=== PATIENT | male | born 1970 | race Caucasian/White ===

== ENCOUNTER 2024-08-07 20:05 | Emergency (ER) | payer SELFPAY ==
[2024-08-07 20:08] VITALS: BP 151/100; PULSE 86; RESP 18; TEMP 36.4; O2SAT 100; BMI 19.8
[2024-08-07 21:06] VITALS: PULSE 69; RESP 17; O2SAT 98
[2024-08-07 21:48] LABS: Amphetamine Urine VISTA POSITIVE (<1000 ng/mL); Barbiturate Urine VISTA NEGATIVE (< 200 ng/mL); Benzodiazepine Urine VISTA NEGATIVE (< 200 ng/mL); Cocaine Urine VISTA NEGATIVE (< 300 ng/mL); Ecstacy Urine VISTA NEGATIVE (< 500 ng/mL); Methadone Urine VISTA NEGATIVE (< 300 ng/mL); PCP Urine VISTA NEGATIVE (< 25 ng/mL); THC Urine VISTA NEGATIVE (< 50 ng/mL); Vista UDS pH Range 7
--- NOTE | 2024-08-07 22:07 | ED.RN ---
CHART FAXED TO [facility]
[2024-08-07 22:09] LABS: Absolute Neutrophil Count 4.3 X10^3/uL (2.0-7.7); Basophil# 0.06 X10^3/uL; Basophil% 0.9 % (0-1); Eosinophil# 0.21 X10^3/uL; Eosinophils% 3.2 % (0-5); Hematocrit 43.8 % (40-54); Hemoglobin 15.3 g/dL (13.0-16.5); Lymphocyte % 21.6 % (19-41); Mean Corp Hgb Conc 34.9 g/dL (32-36); Mean Corpuscular Hgb 34.9 pg (27.0-32.0); Mean Corpuscular Volume 99.8 fL (80-94); Mean Platelet Vol. 10.5 fl (6.2-12.0); Monocyte# 0.49 X10^3/uL; Monocyte% 7.6 % (0-10); NRBC Flagged by Analyzer 0 % (0-5); Neutrophil # 4.27 X10^3/uL (2.7-7.7); Neutrophil % 66.1 % (47-70); Platelet Count 315 K/mm3 (150-450); RBC Distribution Width CV 13.2 % (11.6-14.6); RBC Distribution Width SD 48.5 fl (35.1-43.9); Red Blood Count 4.39 M/mm3 (4.6-6.2); White Blood Count 6.5 K/mm3 (4.4-11.0)
[2024-08-07 22:19] LABS: Anion Gap 5 (5-15); BUN 11 mg/dL (7-18); BUN/Creat Ratio 13.9 RATIO (10-20); Calcium,Total 9.1 mg/dL (8.5-10.1); Chloride 105 mmol/L (98-107); Creatinine, Serum 0.79 mg/dL (0.70-1.30); EST Glomerular Filtration Rate 108 mL/min (>60); Est Glom Filt Rate - Afr Amer 131 mL/min (>60); Estimated Creatinine Clearance 87.76 ml/min; Glucose 92 mg/dL (74-106); Potassium 3.6 mmol/L (3.5-5.1); Sodium Level 136 mmol/L (136-145)
--- NOTE | 2024-08-07 23:16 | EDS_ITS ---
HPI HPI - Psych History of Present Illness Chief Complaint: Mental Health Detail of Chief Complaint: Patient was brought to the ER by law enforcement and pink slipped because o Informant: patient, family and police/wrecker operator Onset/Context/Timing Onset: Weeks Context: Sudden Onset Timing: Intermittent Current Severity: Moderate Maximum Severity: Severe Worsened by: Situational factors (Per patient. This was not confirmed by mother or law enforcement) Relieved by: Nothing Associated Symptoms Associated Symptoms - Psych: Positive for Change in Eating, Change in sleeping, Easily distracted, Angry, Threatening, Paranoia, Visual Hallucinations and Auditory Hallucinations Specific plan (suicidal thought): No suicidal thoughts. Narrative Narrative: Patient is a 53-year-old male.There are no prior records available through [facility]. History is limited to what the police or patrol park officer told me. Patient's spouse apparently 2 years ago. Sister who is close to 2 weeks ago. Spoke with a friend who confirmed that he was over his house and discussing his sisters and that he was sad. I was later informed by law enforcement who I spoke to independently that the friend has psychiatric issues. The officer that brought him to the emergency room informing that his mother moved out a week ago because of not feeling Sydnee and his behavior. He has been yelling at the neighbor's son. He is having visual and auditory hallucinations. He is not well-groomed. He has been agitated. He has had change in sleep and eating. It is unknown whether he has a underlying psychiatric disorder. After speaking with the licensed loan officer from the counseling center I was made aware that patient does have a psychiatric disorder. He apparently is not compliant with his medication. Prior similar symptoms: Yes Recent Illness/Hospitalization: Yes (Per licensed loan officer from the crisis center.) PFSH PFSH unable to obtain Home Medications ?Medication ?Instructions ?Recorded ?Last Taken ?Type NK 08/07/24 Unknown History Allergy/AdvReac Type Severity Reaction Status Date / Time Penicillins Allergy PT UNSURE Verified 08/07/24 20:08 OF REACTION Surgical History (Updated 08/07/24 @ 20:43 by Angeline Morse) Hx of inguinal hernia surgery Social History (Updated 08/07/24 @ 23:[address] Romero Amaro MD) household members: family Smoking Status: Heavy Smoker (>10/day) ROS ROS ED Review of Systems ROS Unobtainable: due to mental condition, due to mental status and other Details: Patient denies everything. EXAM Physical Exam Const Vital Signs: 08/07/24 20:08 08/07/24 21:06 Temperature 97.5 F L Temperature Source Temporal Pulse Rate 86 69 Respiratory Rate 18 17 Blood Pressure 151/100 H Blood Pressure Mean 117 Pulse Ox 100 98 Oxygen Delivery Method Room Air Room Air Positive well nourished and well developed Constitutional Narrative: Patient was in hospital gown when I saw him. Blood pressure is elevated. General Appearance ED: well developed and irritable; Negative for pallor HEENT Reports TM's clear and moist mucous membranes normocephalic and atraumatic Tympanic Membrane ED: Yes TM's clear Eyes PERRL and EOMs intact bilaterally General Eye ED: Negative for pale conjunctiva or scleral icterus Neck no lymphadenopathy, supple and no JVD Resp normal respiratory effort and clear to auscultation bilaterally Cardio S1 normal heart sound, S2 normal heart sound and no murmurs Rate: regular rate Rhythm: regular rhythm GI non-tender, non-distended and no masses Auscultation: normoactive bowel sounds Back/Spine no CVA tenderness Extremity normal to inspection General Extremety ED: Negative for edema or tenderness General Extremity: Negative for edema Neuro oriented x3, CN's II-XII intact bilaterally, no sensory deficits noted and deep tendon reflexes 2+ bilaterally Alfredo Coma Scale: document GCS findings Spontaneous Obeys Commands Oriented 15 Sensorium / Orientation: alert Motor Exam: strength 5/5 throughout Psych Appearance: other Patient in hospital gown. Attitude: paranoid Activity / Motor Behavior: psychomotor agitation Speech: rapid Mood & Affect: irritable and labile affect Thought Process: confabulating Thought Content: No suicidality, No homicidality, delusion(s) and hallucination(s) Positive for auditory and visual Attention / Concentration: other Difficult to assess since patient is not forthcoming. Insight: poor Judgement: poor Skin General Skin Exam: Negative for jaundice or pallor Lesions: no lesions Rashes: no rashes MDM MDM MDM Narrative Medical decision making narrative: Initially tox and alcohol level were obtained. After speaking with law enforcement for no workup was undertaken to rule out metabolic infectious causes since patient will need hospitalization. Patient has been pink slipped by me. Lab Data Lab results narrative: CBC is unremarkable. Electrolyte panel is normal. Urine tox is positive for amphetamines. Alcohol level is 21. Labs: Laboratory Results - last 24 hr 08/07/24 08/07/24 21:19 21:23 WBC 6.5 RBC 4.39 L Hgb 15.3 Hct 43.8 MCV 99.8 H MCH 34.9 H MCHC 34.9 RDW Std Deviation 48.5 H RDW Coeff of Ayush 13.2 Plt Count 315 MPV 10.5 Immature Gran % (Auto) 0.600 Neut % (Auto) 66.1 Lymph % (Auto) 21.6 [place] % (Auto) 7.6 Eos % (Auto) 3.2 Baso % (Auto) 0.9 Absolute Neuts (auto) 4.3 Absolute Lymphs (auto) 1.40 Nucleated RBC % 0 Sodium 136 Potassium 3.6 Chloride 105 Carbon Dioxide 26.0 Anion Gap 5 BUN 11 Creatinine 0.79 Estim Creat Clear Calc 87.76 Est GFR (MDRD) Af Amer 131 Est GFR (MDRD) Non-Af 108 BUN/Creatinine Ratio 13.9 Glucose 92 Calcium 9.1 Urine Opiates Screen NEGATIVE Urine Methadone Screen NEGATIVE Ur Barbiturates Screen NEGATIVE Ur Phencyclidine Scrn NEGATIVE Ur Amphetamines Screen POSITIVE H MDMA (Ecstasy) Screen NEGATIVE U Benzodiazepines Scrn NEGATIVE Urine Cocaine Screen NEGATIVE U Cannabinoids Screen NEGATIVE Ur Drug Screen Comment Ethyl Alcohol 21.0 Management Discussion w/another healthcare provider: belt worker/Case management (fiber glass worker from crisis center after speaking with Zenaida Santiago criminal justice social worker in the ER) and Behavioral health (fiber glass worker from crisis center) Treatment and Re-Evaluation Narrative: The night physician was made aware patient and told patient has been pink slipped and awaiting placement to psychiatric facility. Discharge Plan Triage Chief Complaint: Mental Health ED Provider: Romero Amaro Dx/Rx/DC Orders Clinical Impression: Psychosis, Depression, Auditory hallucinations, Visual hallucinations, Delusional ideas, Elevated blood pressure reading Prescriptions: No Action NK Primary Care Provider: Care Physician,No Primary Referrals: Care Physician,No Primary [Primary Care Provider] - Print Language: Setswana Disposition Disposition: Psychiatric Hospital or Unit
--- NOTE | 2024-08-08 03:51 | ED.RN ---
referred to [facility]
[2024-08-08 06:01] VITALS: BP 116/78; PULSE 69; RESP 17; O2SAT 97
--- NOTE | 2024-08-08 13:38 | CM.ED ---
Social Work SW spoke with Vale from Crisis, Vale stated that referral at [facility] has gone up to an administrative review. Will update SW or nursing staff when she receives an update. Plan: Inpatient psychiatric placement pending acceptance. Zenaida Ocampo, TOY MECHANIC, HIGH SCHOOL ASSISTANT PRINCIPAL
[2024-08-08 14:00] VITALS: BP 122/76; PULSE 74; RESP 18; O2SAT 99
--- NOTE | 2024-08-08 17:49 | CM.ED ---
Social Work SW called Deyvi at Crisis to get update on placement for patient. Deyvi stated the last update they received from [facility] was that patient was still under administrative review. Plan: Inpatient psychiatric hospitalization pending acceptance. Zenaida Ocampo, APPLIED EXERCISE PHYSIOLOGIST, BAGGAGE AGENT
--- NOTE | 2024-08-08 20:32 | ED.RN ---
TEZ FROM THE COUNSELING CENTER CALLED, HE STATED HE REACHED OUT TO [facility] TO SEE IF THERE WAS ANY UPDATE ON ACCEPTANCE. THEY STATED THAT HE IS NOT APPROPRIATE TO ACCEPT WITH HIS ACUTE AMPHETAMINE INTOXICATION, BUT THEY COULD REVIEW AFTER WE SEND AN UPDATED TOX SCREEN TO THEM.
[2024-08-08 22:00] VITALS: BP 131/88; PULSE 80; RESP 16; O2SAT 95
--- NOTE | 2024-08-08 22:08 | ED.RN ---
This nurse talked to Dorothy on the phone. Stating case managemnt for crisis and [facility] will be talking in the morning to discuss acute amphetamine in tox screen. This nurse talked to Dr. Mera and pt is medically cleared and could test positive for drugs up to several days from now. Crisis to come back in and do their 24hr reevaluation.
[2024-08-09 06:00] VITALS: BP 119/86; PULSE 70; RESP 18; O2SAT 95
--- NOTE | 2024-08-09 08:45 | ED.RN ---
red called. requesting 48 hour observation. concerned for acute amphetamine psychosis d/t hallucinations with no history or other medical cause identified. staff clarified pt will remain on waitlist for bed during this 48 hour obs period.
--- NOTE | 2024-08-09 13:54 | CM.ED ---
[facility] Called Vale at Crisis ([phone]) around 0820 to inquire about any additional updates. Vale stated what was known already by nursing (as per [facility] nursing notes): patient has been denied for immediate admission at [facility] due to acute amphetamine intoxication. Patient reportedly needs a redraw after 48 hours and [facility] will reevaluate. Vale stated when this was done, [facility] could fax updated labs to Crisis and Crisis would resend items. SW to follow as needed. Plan: 48 hours redraw to attempt [facility] referral again by Crisis Ayah Mckeon, ADVERTISING INTERN, LUBE WORKER
[2024-08-09 14:00] VITALS: BP 122/72; PULSE 72; RESP 18; O2SAT 98
--- NOTE | 2024-08-09 20:34 | CM.ED ---
Social work Eric with Crisis called this SW to update that patient will likely be in [facility] ED through the weekend. Patient will continue to receive 24 hour updates through Crisis. Nursing updated. SW to assist as needed. Ayah Mckeon, HEALTHCARE MARKET CONSULTANT, FICTION AND NONFICTION PROSE WRITER
[2024-08-09 22:11] VITALS: BP 118/68; PULSE 70; RESP 16
[2024-08-10 06:15] VITALS: BP 124/86; PULSE 64; RESP 18; O2SAT 98
[2024-08-10 14:00] VITALS: PULSE 70; RESP 18; O2SAT 93
--- NOTE | 2024-08-10 19:46 | CM.ED ---
Social Work: clerical production worker received call from Eric with [facility]. It has been confirmed that patient has been accepted to [facility] however [facility] does not have a current available bed, they do not process discharges in the weekends. Patient is first on the waiting list however it is still anticipated that [facility] will not likely have an available bed until almost mid next week. Crisis Team to notify ED of NTN information once available. Crisis Team will continue to complete assessments every 24 hours until placement has been secured for patient. Fatmata Bishop, CHANGE DIRECTOR, ROAD FREIGHT BRAKE COUPLER
[2024-08-10 22:00] VITALS: BP 116/78; PULSE 70; RESP 18; TEMP 36.7; O2SAT 98
[2024-08-11 06:40] VITALS: BP 128/87; PULSE 63; RESP 17; O2SAT 97
[2024-08-11 14:00] VITALS: BP 120/78; PULSE 75
[2024-08-11 23:00] VITALS: BP 118/82; PULSE 62; RESP 17; O2SAT 98
[2024-08-12] MEDS: Nicotine Polacrilex 2 MG GUM PO (05:51)
[2024-08-12 07:00] VITALS: BP 126/84; PULSE 60; RESP 16; O2SAT 96
[2024-08-12] MEDS: Acetaminophen 325 MG Tablet 650 MG PO (08:28)
[2024-08-12 12:00] VITALS: BP 120/82; PULSE 60; RESP 18; TEMP 36.6; O2SAT 99
== END 2024-08-12 11:45 ==
PROVIDERS: Emergency Provider Emergency Medicine; Visit Provider Emergency Medicine
DX: F29 Unspecified psychosis not due to a substance or known physiological condition (principal); F22 Delusional disorders; R03.0 Elevated blood-pressure reading, without diagnosis of hypertension; F32.A Depression, unspecified; F17.200 Nicotine dependence, unspecified, uncomplicated; Z91.148 Patient's other noncompliance with medication regimen for other reason; Z63.4 Disappearance and death of family member
CPT/HCPCS: 80048; 80307; 82077; 85025; 99285